=== PATIENT | female | born 1935 | race Caucasian/White ===

== ENCOUNTER 2018-05-24 14:40 | Outpatient (CLI) | payer MEDICARE, BC ==
[2018-05-24 16:59] LABS: #Lymphocytes 1.7 thou/uL (1.20-3.40); #Monocytes 0.8 thou/uL (0.11-0.59); #Neutrophils 6.7 thou/uL (1.40-6.50); %Eosinophils 0.3 % (0.0-10.0); %Lymphocytes 18.6 % (21.0-51.0); %Neutrophils 72.1 % (42.0-75.0); Hemoglobin 10.4 g/dL (12.0-16.0); Mean Corpuscular HGB CONC 32.3 g/dL (32.0-36.0); Mean Corpuscular Hemoglobin 25.9 pg (27.0-31.0); Mean Corpuscular Volume 80.1 fL (78.0-98.0); Mean Platelet Volume 7.3 fL (7.4-10.4); Platelet Count 227 thou/uL (130-400); RBC Distribution Width 13.3 % (11.5-14.5); Red Blood Cell (RBC) Count 4.01 mill/uL (4.20-5.40); White Blood Cell (WBC) Count 9.3 thou/uL (4.8-10.8)
[2018-05-24 17:23] LABS: ALT (SGPT) 8 U/L (8-55); AST (SGOT) 15 U/L (5-34); Albumin 3.8 g/dL (3.4-4.8); Alkaline Phosphatase 81 U/L (40-150); Anion Gap 8 mmol/L (10-20); BUN (Urea Nitrogen) 12 mg/dL (9.8-20.1); Bilirubin, Total 0.2 mg/dL (0.2-1.2); Calc. Creatinine Clearance 0 mL/min (70-130); Calcium 8.8 mg/dL (7.8-10.44); Carbon Dioxide 30 mmol/L (23-31); Chloride 104 mmol/L (98-107); Estimated GFR-MDRD 64; Globulin 2.7 g/dL (2.4-3.5); Glucose 105 mg/dL (83-110); Potassium 3.1 mmol/L (3.5-5.1); Protein, Total 6.5 g/dL (6.0-8.3); Sodium 139 mmol/L (136-145)
== END 2018-05-24 14:41 | disposition home or self-care (01) ==
LOC: LABBT 14:40
PROVIDERS: ATTEND Specialist
DX: Z01.812 Encounter for preprocedural laboratory examination (principal); K51.411 Inflammatory polyps of colon with rectal bleeding
CPT/HCPCS: 80053; 85025

== ENCOUNTER 2018-05-26 05:40 | Day surgery (SDC) | payer MEDICARE, BC ==
[2018-05-24 15:40] VITALS: BMI 18.5
[2018-05-26] MEDS ORDERED: MEROPENEM 1 GM/50 ML 1 GM in Premix Bag 1 BAG IVPB SCH (06:30)
[2018-05-26] MEDS ORDERED: Meropenem 1 GM in Sodium Chloride 0.9% 100 ML IVPB SCH (06:30)
[2018-05-26] MEDS ORDERED: Meropenem 2 GM in Sodium Chloride 0.9% 100 ML IVPB SCH (06:45)
[2018-05-26] MEDS ORDERED: Fentanyl 100 MCG/2 ML VIAL ONE ×2 (07:01→10:52)
--- NOTE | 2018-05-26 07:15 | HP ---
HISTORY OF PRESENT ILLNESS: An 82-year-old female referred by Dr. Vanegas for rectal bleeding. The pa norma has never had a colonoscopy. Family history is negative for colon cancer. Patient is here wit h her . She denies having rectal pain. She had laboratories on 12/18/2017 noting normal comp rehensive metabolic profile and hemoglobin 11. PAST SURGICAL HISTORY: Noncontributory. PAST MEDICAL HISTORY: Noncontributory. ALLERGIES: None. TOBACCO: None. ALCOHOL: None. MEDICATIONS: Eyedrops, Tylenol p.r.n. REVIEW OF SYSTEMS: Ten point noncontributory. PHYSICAL EXAMINATION: VITAL SIGNS: 97 pounds, 5 foot 2, 128/64, 67, 98.8 degrees. HEENT: Unremarkable. LUNGS: Clear to auscultation. CARDIAC: Regular rate and rhythm without murmur or gallop. ABDOMEN: Soft, nontender, no masses. EXTREMITIES: Unremarkable. GENITOURINARY: Perianal area reveals mild hemorrhoids. Rectal exam does not reveal any palpable mas ses. Anoscopy reveals anteriorly on the vaginal side, a soft apparent low rectal polyp. This is not typical appearance of a hemorrhoid. ASSESSMENT AND PLAN: Rectal polyp. This is sessile and measures about 3 cm in diameter. Would gayla mmend colonoscopy with transanal excision of low rectal polyp as an outpatient. We will plan a bowel prep today before clear liquids, Suprep, then plan colonoscopy and transanal excision of low rectal polyps as an outpatient. Risk of infection, bleeding, and reoperation explained. She consents.
[2018-05-26] MEDS ORDERED: Ketamine 50 MG/ML VIAL ONE (07:27)
[2018-05-26] MEDS ORDERED: PROPOFOL 20 ML ONE (07:27)
[2018-05-26] MEDS ORDERED: Midazolam HCl 2 mg/2 ml Vial ONE (07:36)
[2018-05-26] MEDS ORDERED: PROPOFOL 40 ML ONE (09:21)
[2018-05-26] MEDS ORDERED: Bupivacaine HCl 0.5%/Epinephrine 1:200,000/PF 30 ml Vial ONE (09:42)
--- NOTE | 2018-05-26 13:20 | OP ---
DATE OF PROCEDURE: 05/26/2018 PREOPERATIVE DIAGNOSES: Rectal bleeding, rectal polyp. POSTOPERATIVE DIAGNOSES: Rectal bleeding, rectal polyp with large single column hemorrhoid, smaller sigmoid polyp 25-30 cm, larger polyp 20-25 cm, snare polypectomy with cautery of base, visualization of the right colon, although I could not see the cecum due to poor bowel prep. She had multiple form ed stool balls in the rectosigmoid requiring reinsertion of the scope cleaning and thick brown stool in the cecum preventing adequate visualization. Throughout the colon, there was a [id number] amount of stool that prevented complete visualization and inspection of mucosa, but no gross lesions noted. SURGEON: Dany Perez M.D. ANESTHESIA: TIVA. Local 0.25% Marcaine with epinephrine, 10 mL PROCEDURE IN DETAIL: The patient was taken to the operating room where in the left lateral decubitus position and IV sedation, colonoscope was passed per anus. I had to remove and replace the scope fr equently, digitally removing stool balls to enable visualization. I was finally able to progress the scope with some difficulty due to tortuosity towards the cecum. I could visualize the right colon, but could not see the cecum in its entirety because of brown stool. I did irrigate this, tried to ev acuate it, but it was just too thick. There were no gross obstructive tumors. There was a small félix unt of brown stool adherent and foci throughout the colon preventing complete visualization, but I wa s able to rule out gross lesions. There are a few diverticula in the sigmoid colon. In the rectosig moid approximately 25 cm to 30 cm from the anus, there was a sessile polyp. Snare polypectomy perfor med noting good hemostasis, retrieval on the trap. There was a larger polyp at 20-25 cm, snared, rem greg, retrieved . I then inspected the polypectomy site and cauterized that with the probe caut priscila. Good hemostasis noted. Scope withdrawn noting normal rectum otherwise. The patient was then p laced in the dorsal lithotomy position. She was placed in stirrups. Perianal buttocks area prepared with Betadine and Hill-Paredes retractor inserted into the right of the anus was a large hemorrhoid complex. This had a focus of mucosa. It appeared slightly abnormal, although not malignant. This is the area that seen with anoscopy in the office. This is a questionable polyp, but more likely hem orrhoid tissue. A single column hemorrhoidectomy performed by placing apical suture of 3-0 chromic a nd using the LigaSure hemorrhoid device, excised a single column hemorrhoid complex encompassing rese ction of the questionable mucosal abnormality. Hemostasis gained with continuous suture of 3-0 chrom ic approximating the mucosa and the skin perianal. Local anesthetic infiltrated in skin and subcutan eous tissue perianal. The patient tolerated the procedure well. Xeroform gauze applied.
== END 2018-05-26 12:48 | disposition home or self-care (01) ==
LOC: SDC 05:40
PROVIDERS: ATTEND Specialist
PROC: 0DBN8ZX Excision of Sigmoid Colon, Via Natural or Artificial Opening Endoscopic, Diagnostic (ICD-10-PCS; principal; 2018-05-26)
PROC: 06BY0ZC Excision of Hemorrhoidal Plexus, Open Approach (ICD-10-PCS; 2018-05-26)
DX: K57.31 Diverticulosis of large intestine without perforation or abscess with bleeding (principal); D12.7 Benign neoplasm of rectosigmoid junction; K64.8 Other hemorrhoids; K62.1 Rectal polyp; Z79.899 Other long term (current) drug therapy
CPT/HCPCS: 88305; 96374; J0670; J2185; J2250; J2704; J3010; J7050

== ENCOUNTER 2018-07-13 08:07 | Emergency (ER) | payer MEDICARE, BC ==
[2018-07-13 08:28] LABS: Bilirubin Negative (Negative); Blood, Urine Negative (Negative); Clarity CLEAR (Clear); Glucose, Urine (Dipstick) Negative (Negative); Leukocyte Trace (Negative); Nitrite Negative (Negative); Protein, Urine (Dipstick) Negative (Neg-Trace); Specific Gravity, Urine 1.005 (1.002-1.036); Urobilinogen 0.2 mg/dL (0.2-1.0); pH, Urine 6.5 (5.0-9.0)
[2018-07-13 08:30] LABS: Bacteria/HPF None Seen HPF (None Seen); Hyaline Casts/LPF 0-3 HYALINE CAST LPF (0-3 Hyaline); Pathc Cast-AUWi Flag 0.14 (0-2.49); RBC/HPF 0-3 HPF (0-3); Squamous Epithelial None Seen HPF (0-3); WBC/HPF 0-3 HPF (0-3)
--- NOTE | 2018-07-13 09:48 | CT ---
CT BRAIN WITHOUT CONTRAST: Date: 07/13/18 HISTORY: Altered mental status. FINDINGS: Comparison made with exam of 06/11/12. No evidence of infarct, hemorrhage, midline shift, or abnormal extra-axial fluid collections are seen . Changes of cortical atrophy and chronic small vessel ischemic disease are present. The ventricular size is appropriate and the basilar cisterns are patent. The bony calvarium is intact. The visualized paranasal sinuses and mastoid air cells are well aerated. IMPRESSION: No CT evidence of acute intracranial process. POS: [facility]
[2018-07-13 09:51] LABS: #Basophils 0.1 thou/uL (0.0-0.2); #Lymphocytes 1.8 thou/uL (1.20-3.40); #Monocytes 0.5 thou/uL (0.11-0.59); #Neutrophils 2.3 thou/uL (1.40-6.50); %Basophils 2.8 % (0.0-1.0); %Eosinophils 0.8 % (0.0-10.0); %Lymphocytes 38.3 % (21.0-51.0); %Monocytes 9.5 % (0.0-10.0); %Neutrophils 48.6 % (42.0-75.0); Hemoglobin 11.1 g/dL (12.0-16.0); Mean Corpuscular HGB CONC 32.4 g/dL (32.0-36.0); Mean Corpuscular Hemoglobin 24.9 pg (27.0-31.0); Mean Corpuscular Volume 76.7 fL (78.0-98.0); Mean Platelet Volume 7.7 fL (7.4-10.4); Platelet Count 239 thou/uL (130-400); RBC Distribution Width 13.4 % (11.5-14.5); Red Blood Cell (RBC) Count 4.47 mill/uL (4.20-5.40); White Blood Cell (WBC) Count 4.8 thou/uL (4.8-10.8)
--- NOTE | 2018-07-13 09:56 | RAD ---
PORTABLE CHEST 1 VIEW: Date: 07/13/18 Time: 0941 hours HISTORY: Altered mental status. FINDINGS: Comparison made with exam of 04/29/12. The heart size is borderline. The lungs are well expanded without focal areas of consolidation, pneum othoraces, or pleural effusions. IMPRESSION: No acute process. POS: [facility]
[2018-07-13 10:08] LABS: ALT (SGPT) 7 U/L (8-55); AST (SGOT) 19 U/L (5-34); Alkaline Phosphatase 84 U/L (40-150); Anion Gap 14 mmol/L (10-20); BUN (Urea Nitrogen) 13 mg/dL (9.8-20.1); Bilirubin, Total 0.4 mg/dL (0.2-1.2); Calc. Creatinine Clearance 0 mL/min (70-130); Calcium 9.4 mg/dL (7.8-10.44); Carbon Dioxide 24 mmol/L (23-31); Chloride 104 mmol/L (98-107); Estimated GFR-MDRD 62; Glucose 89 mg/dL (83-110); Potassium 3.5 mmol/L (3.5-5.1); Sodium 138 mmol/L (136-145)
== END 2018-07-13 15:20 | disposition home or self-care (01) ==
LOC: ERS 08:07
DX: F03.90 Unspecified dementia, unspecified severity, without behavioral disturbance, psychotic disturbance, mood disturbance, and anxiety (principal); Z79.899 Other long term (current) drug therapy
CPT/HCPCS: 36415; 70450; 71045; 80053; 81003; 81015; 84443; 84484; 85025

== ENCOUNTER 2018-07-18 18:01 | Inpatient (IN) | payer MEDICARE, BC ==
[2018-07-18] MEDS ORDERED: Ziprasidone 20 MG CAP ONE (19:04)
[2018-07-18 20:27] LABS: Bilirubin Negative (Negative); Blood, Urine Negative (Negative); Clarity CLEAR (Clear); Glucose, Urine (Dipstick) Negative (Negative); Leukocyte Moderate (Negative); Nitrite Negative (Negative); Protein, Urine (Dipstick) 30 mg/dL (Neg-Trace); Specific Gravity, Urine 1.029 (1.002-1.036)
[2018-07-18 20:28] LABS: Bacteria/HPF None Seen HPF (None Seen); Pathc Cast-AUWi Flag 1.74 (0-2.49); RBC/HPF 0-3 HPF (0-3)
[2018-07-18 20:51] LABS: Hyaline Casts/LPF 0-3 HYALINE CAST LPF (0-3 Hyaline)
[2018-07-18] MEDS ORDERED: cefTRIAXone\\ROCEPHIN 1 GM VIAL ONE (21:29)
[2018-07-18] MEDS ORDERED: Sodium Chloride 0.9% 100 ML ONE (21:29)
[2018-07-18 21:41] LABS: #Eosinphils 0.1 thou/uL (0.0-0.7); #Lymphocytes 2.6 thou/uL (1.20-3.40); #Monocytes 0.8 thou/uL (0.11-0.59); #Neutrophils 3.1 thou/uL (1.40-6.50); %Basophils 0.7 % (0.0-1.0); %Eosinophils 1.4 % (0.0-10.0); %Lymphocytes 39.5 % (21.0-51.0); %Monocytes 11.4 % (0.0-10.0); %Neutrophils 46.9 % (42.0-75.0); Hemoglobin 11.1 g/dL (12.0-16.0); Mean Corpuscular HGB CONC 32.7 g/dL (32.0-36.0); Mean Corpuscular Hemoglobin 25.1 pg (27.0-31.0); Mean Corpuscular Volume 76.7 fL (78.0-98.0); Platelet Count 235 thou/uL (130-400); RBC Distribution Width 14.1 % (11.5-14.5); White Blood Cell (WBC) Count 6.6 thou/uL (4.8-10.8)
[2018-07-18 21:49] LABS: ALT (SGPT) 15 U/L (8-55); AST (SGOT) 18 U/L (5-34); Albumin 3.7 g/dL (3.4-4.8); Alkaline Phosphatase 96 U/L (40-150); Anion Gap 12 mmol/L (10-20); BUN (Urea Nitrogen) 12 mg/dL (9.8-20.1); Bilirubin, Total 0.2 mg/dL (0.2-1.2); Calc. Creatinine Clearance 0 mL/min (70-130); Carbon Dioxide 26 mmol/L (23-31); Chloride 102 mmol/L (98-107); Estimated GFR-MDRD 69; Globulin 2.9 g/dL (2.4-3.5); Glucose 99 mg/dL (83-110); Potassium 3.6 mmol/L (3.5-5.1); Protein, Total 6.6 g/dL (6.0-8.3); Sodium 136 mmol/L (136-145)
[2018-07-18 23:00] VITALS: BMI 17.0
[2018-07-19] MEDS ORDERED: Acetaminophen 500 MG TAB PO PRN (00:58)
[2018-07-19] MEDS ORDERED: Ipratropium Bromide 0.06% Nasal Inhaler 15ml EA NARE PRN (00:58)
[2018-07-19] MEDS ORDERED: Acetaminophen 325 MG TAB PO PRN (01:07)
[2018-07-19] MEDS ORDERED: Haloperidol Lactate 5 MG/ML VIAL IM PRN (01:12)
[2018-07-19] MEDS ORDERED: Sodium Chloride 0.9% 1,000 ML IV SCH (01:15)
[2018-07-19] MEDS ORDERED: Enoxaparin Sodium 40 MG/0.4 ML SYRINGE SC SCH (01:15)
[2018-07-19] MEDS ORDERED: Loratadine 10 MG TAB PO PRN (08:17)
[2018-07-19] MEDS ORDERED: Bisacodyl 10 MG SUPP PR PRN (08:17)
[2018-07-19] MEDS ORDERED: HYDROcodone/Acetaminophen 5/325 mg Tablet PO PRN (08:17)
[2018-07-19] MEDS ORDERED: hydrALAZINE 20 MG/ML VIAL SLOW IVP PRN (08:17)
[2018-07-19] MEDS ORDERED: Artificial Tears 18 DROP/0.9 ML EA EYE PRN (08:17)
[2018-07-19] MEDS ORDERED: Senokot S 8.6-50 MG TAB PO PRN (08:17)
[2018-07-19] MEDS ORDERED: Sodium Chloride 0.65% Nasal 44 ML BOT EA NARE PRN (08:17)
[2018-07-19] MEDS ORDERED: Diabetic Tussin 200 MG/10 ML UDCUP PO PRN (08:17)
[2018-07-19] MEDS ORDERED: Eucerin (Mineral Oil/Petrolatum,White) 30 gm Jar TOP PRN (08:17)
[2018-07-19] MEDS ORDERED: Loperamide HCl 2 MG CAP PO PRN (08:17)
[2018-07-19] MEDS ORDERED: Ondansetron PF 4 MG/2 ML Vial IVP PRN (08:17)
[2018-07-19] MEDS ORDERED: Ondansetron ODT 4 MG TAB PO PRN (08:17)
[2018-07-19] MEDS ORDERED: Cepastat Lozenges 1 LOZ PO PRN (08:17)
[2018-07-19] MEDS ORDERED: Non-Formulary Item 1 EACH (Bimatoprost [Lumigan] 1 DROP) EA EYE SCH (09:00)
[2018-07-19] MEDS ORDERED: Famotidine/PF 20 mg/2ml Vial SLOW IVP SCH (09:00)
[2018-07-19] MEDS ORDERED: Non-Formulary Item 1 EACH (Omeprazole [Omeprazole] 1 CAP) PO SCH (09:00)
[2018-07-19] MEDS: DorzolamidE/Timolol 2%/0.5% Ophth Soln 10 ml Bottle EA EYE SCH ×2 (09:02→20:13)
--- NOTE | 2018-07-19 10:16 | HP ---
CHIEF COMPLAINT: Alterations of awareness. HISTORY OF PRESENT ILLNESS: This is an 82-year-old female with past medical history of hypertension, dementia, and cardiomyopathy, presenting with alteration of awareness. Per family, the patient has been having worsening dementia with sundowning. The patient sometimes is okay, but every now and then, the patient becomes very anxious and agitated. The patient decides to leave the house and sometimes, the patient wants to drive off and even though, the patient has been in the hospital, the patient's medications have been adjusted. It seems like the patient is having worsening agitation and fighting with the and causes so many problems at home. Family states that they cannot manage the patient at home due to her safety at this time because the patient's mentation has worsened completely. It is unknown if the patient has underlying encephalopathy due to inadequate medication or if the patient is having some infection, therefore, the family brought the patient in to be further evaluated. REVIEW OF SYSTEMS: Unable to be obtained since the patient has alteration of awareness. PAST MEDICAL HISTORY: Hypertension, dementia, and cardiomyopathy. FAMILY HISTORY: Reviewed and noncontributory. PAST SURGICAL HISTORY: Hysterectomy. PSYCHIATRIC HISTORY: No previous psych history noted. SOCIAL HISTORY: The patient does not drink. The patient does not do illicit drugs. The patient does not smoke. The patient lives at home with family and . ALLERGIES: NO KNOWN DRUG ALLERGIES. CURRENT MEDICATIONS: The patient takes; 1. Lisinopril 10 mg. 2. Lasix 10 mg. 3. Citalopram. 4. Verapamil. 5. Omeprazole. PHYSICAL EXAMINATION: VITAL SIGNS: The patient's blood pressure is 145/92, pulse of 76, respiratory rate of 15, oxygen saturation of 98% on room air. GENERAL: The patient is alert and oriented x3, not in acute distress. HEENT: Normocephalic, atraumatic. Pupils are equally round and reactive to light. Extraocular movements are intact. No scleral icterus. Mucous membranes are moist. NECK: Trachea is midline. Full range of motion. No JVD. Supple. LUNGS: Clear to auscultation bilaterally. No wheezing, no rales, no rhonchi is appreciated. CARDIAC: Positive S1 and S2. Regular rate and rhythm. No murmurs, no gallops, no rubs appreciated. ABDOMEN: Soft, nontender, and nondistended. Positive bowel sounds in all quadrants. EXTREMITIES: The patient has 5/5 upper extremity strength with good pulses bilaterally and lower extremities, the patient has 5/5 lower extremity strength with good pulses bilaterally. NEUROLOGIC: Cranial nerves 2 through 12 grossly intact. No neurologic deficits noted. SKIN: Warm, dry, and intact. LABORATORY DATA: WBC 6.6, hemoglobin is 11.1, MCV 76.7, and RDW 14.1. Chemistries within normal limits. Urinalysis; the patient has moderate leukocyte esterase, however, the patient's squamous epithelial cell is 7 to 10. ASSESSMENT AND PLAN: 1. This is an 82-year-old female, presenting with worsening dementia. At this time, we are going to continue the patient on her home medication. We are going to order Haldol 2 mg every 4 hours p.r.n. for agitation and we are going to speak to family regarding the patient's safety and possible renal case manager consultation to further evaluate the patient for placement due to the patient's worsening dementia. 2. Alteration of awareness, likely due to underlying delirium on top of the patient's dementia due to possible urinary tract infection. At this point, we have started the patient on Rocephin. The patient's urinalysis had a lot of squamous epithelial cells, it might be likely contamination, however, due to the patient's mental status, we will empirically treat the patient with Rocephin and to follow up on morning labs and we will follow up on the patient's progress. 3. History of hypertension, at this point, normotensive. We will continue the patient on her home medications. 4. History of cardiomyopathy. At this point, the patient is not in any acute heart failure. We will continue the patient on her home medications. 5. Deep venous thrombosis and gastrointestinal prophylaxis. Job ID: [id number]
[2018-07-19] MEDS: Furosemide 20 MG TAB PO SCH (10:21)
[2018-07-19] MEDS: Lisinopril 20 MG TAB PO SCH (10:21)
[2018-07-19] MEDS: Citalopram 10 MG TAB PO SCH (10:21)
[2018-07-19] MEDS: Saccharomyces boulardii 250 MG CAP PO SCH (10:25)
[2018-07-19] MEDS: Multivitamin W/ Minerals 1 TAB PO SCH (10:25)
--- NOTE | 2018-07-19 11:12 | PDOC.PN ---
- Subjective Encounter Start Date: 07/19/18 Encounter Start Time: 08:00 -: old records requested/rev Patient seen and examined. Pt is agitated, confused, given haldol and now sleepy - Objective Resuscitation Status - Order Detail: 07/19/18 00:59 Resuscitation Status Routine Resuscitation Status: DNAR: NO Resuscitation Discussed with: kade daughter. she will bring her advance directive MAR Reviewed: Yes Vital Signs & Weight: Vital Signs (12 hours) Temp Pulse Resp BP BP Pulse Ox 07/19/18 10:21 151/78 H 07/19/18 10:05 97.5 F L 79 20 151/78 H 95 07/19/18 08:00 95 07/19/18 01:07 98.2 F 76 18 134/76 96 Weight Weight 99 lb 6 oz Result Diagrams: 07/18/18 21:24 07/18/18 21:24 Phys Exam - Physical Examination Constitutional: NAD HEENT: PERRLA, sclera anicteric Neck: no JVD, supple Respiratory: no wheezing, no rales, no rhonchi Cardiovascular: RRR, no significant murmur, no rub Gastrointestinal: soft, non-tender, no distention, positive bowel sounds Musculoskeletal: no edema, pulses present Neurological: moves all 4 limbs Lymphatic: no nodes Psychiatric: normal affect Skin: no rash, normal turgor Dx/Plan (1) Encephalopathy acute Code(s): G93.40 - ENCEPHALOPATHY, UNSPECIFIED Status: Acute (2) UTI (urinary tract infection) Status: Acute (3) Anemia, normocytic normochromic Code(s): D64.9 - ANEMIA, UNSPECIFIED Status: Chronic (4) Dementia Code(s): F03.90 - UNSPECIFIED DEMENTIA WITHOUT BEHAVIORAL DISTURBANCE Status: Chronic (5) GERD (gastroesophageal reflux disease) Code(s): K21.9 - GASTRO-ESOPHAGEAL REFLUX DISEASE WITHOUT ESOPHAGITIS Status: Chronic (6) Glaucoma Code(s): H40.9 - UNSPECIFIED GLAUCOMA Status: Chronic (7) Hypertension Code(s): I10 - ESSENTIAL (PRIMARY) HYPERTENSION Status: Chronic (8) Protein-calorie malnutrition, moderate Code(s): E44.0 - MODERATE PROTEIN-CALORIE MALNUTRITION Status: Chronic - Plan cont current plan of care, plan discussed w/ family, continue antibiotics, PT/OT * continue rocephin * start PT * case coordinator for placement * continue IVF * discussed with family * supportive care * nutritional support * medication reviewed as below * symptomatic treatment. Review of Systems - Review of Systems Other: not reliable due to dementia - Medications/Allergies Allergies/Adverse Reactions: Allergies Allergy/AdvReac Type Severity Reaction Status Date / Time No Known Allergies Allergy Verified 05/24/18 15:40 Medications: Current Medications Acetaminophen (Tylenol) 500 mg PO Q4H PRN PRN Reason: Fever > 101 Hydrocodone Bitart/Acetaminophen ([place] 5/325) 1 tab PO Q4H PRN PRN Reason: Moderate Pain (4-6) Artificial Tears (Tears Naturale) 2 drop EA EYE PRN PRN PRN Reason: Dry Eyes Bisacodyl (Dulcolax) 10 mg [place] DAILYPRN PRN PRN Reason: Constipation Citalopram Hydrobromide (Celexa) 10 mg PO DAILY [facility] Last Admin: 07/19/18 10:21 Dose: 10 mg Dorzolamide/Timolol (Cosopt 2-0.5% Ophth Soln) 1 drop EA EYE BID [facility] Famotidine (Pepcid) 20 mg PO BID [facility] Furosemide (Lasix) 20 mg PO QAM [facility] Last Admin: 07/19/18 10:21 Dose: 20 mg Guaifenesin (Robitussin Sf) 200 mg PO Q4H PRN PRN Reason: Cough Hydralazine HCl (Apresoline) 10 mg SLOW IVP Q4H PRN PRN Reason: SBP > 180 and HR < 70 Sodium Chloride (Normal Saline 0.9%) 1,000 mls @ 80 mls/hr IV .[id number] [facility] Stop: 07/19/18 13:44 Last Admin: 07/19/18 02:18 Dose: 1,000 mls Ceftriaxone Sodium 1 gm/ (Sodium Chloride) 100 mls @ 200 mls/hr IVPB Q24HR@ 2100 [facility] Ipratropium Cable (Atrovent 0.06% Nasal Inhaler) 0 ml EA NARE DAILYPRN PRN PRN Reason: Congestion Iron/Minerals/Multivitamins (Theragran M) 1 tab PO DAILY [facility] Last Admin: 07/19/18 10:25 Dose: 1 tab Latanoprost (Xalatan 0.005% Ophth Soln) 1 drop EA EYE HS [facility] Lisinopril (Zestril) 40 mg PO DAILY [facility] Last Admin: 07/19/18 10:21 Dose: 40 mg Loperamide HCl (Imodium) 2 mg PO PRN PRN PRN Reason: Diarrhea/Loose Stools Loratadine (Claritin) 10 mg PO DAILYPRN PRN PRN Reason: Sinus Symptoms Mineral Oil/White Petrolatum (Eucerin Cream) 0 gm TOP BIDPRN PRN PRN Reason: Dry Skin Miscellaneous Medication (Pharmacy To Dose) 1 each IVPB ONE PRN PRN Reason: Pharmacy to dose Stop: 07/19/18 23:59 Ondansetron HCl (Zofran Odt) 4 mg PO Q6H PRN PRN Reason: Nausea/Vomiting Ondansetron HCl (Zofran) 4 mg IVP Q6H PRN PRN Reason: Nausea/Vomiting Pantoprazole Sodium (Protonix) 40 mg PO DAILY [facility] Last Admin: 07/19/18 10:22 Dose: 40 mg Quetiapine Fumarate (Seroquel) 25 mg PO BID [facility] Saccharomyces Boulardii (Florastor) 250 mg PO DAILY [facility] Last Admin: 07/19/18 10:25 Dose: 250 mg Senna/Docusate Sodium (Senokot S) 2 tab PO BID PRN PRN Reason: Constipation Sodium Chloride (Flush - Normal Saline) 10 ml IVF Q12HR [facility] Sodium Chloride (Flush - Normal Saline) 10 ml IVF PRN PRN PRN Reason: Saline Flush Sodium Chloride ([place] Nasal [place] 0.65%) 0 ml EA NARE QIDPRN PRN PRN Reason: Nasal Congestion Throat Lozenges (Cepastat Lozenges) 1 chin PO Q2H PRN PRN Reason: Sore Throat Verapamil HCl (Calan Sr) 240 mg PO DAILY [facility]
--- NOTE | 2018-07-19 14:14 | PQF ---
CLINICAL DOCUMENTATION IMPROVEMENT CLARIFICATION FORM: ICD-10 Updated PLEASE DO AN ADDENDUM TO THE PROGRESS NOTE WITH ANY DOCUMENTATION UPDATES OR ADDITIONS AND CARRY THROUGH TO DC SUMMARY. THANK YOU. DATE: 07/19/18 ATTN: DR. BARNETT Please exercise your independent, professional judgment in responding to the clarification form. Clinical indicators are provided on the bottom of this form for your review Please check appropriate box(s): [ x ] Encephalopathy: Type: [ x ] Acute [ ] Subacute [ ] Chronic Etiology: [ ] Hypertensive [ ] Metabolic [ ] Toxic [ ] Hypoxic [ x ] Septic [ ] Unspecified [ ] in the setting of underlying dementia [ ] Other (please specify) [ ] Other diagnosis [ ] Unable to determine In addition, please specify: Present on Admission (POA): [ x] Yes [ ] No [ ] Unable to determine For continuity of documentation, please document condition throughout progress notes and discharge summary. Thank You. CLINICAL INDICATORS - SIGNS / SYMPTOMS / LABS H&P: "UNDERLYING ENCEPHALOPATHY" RISKS: DEMENTIA ADVANCED AGE UTI TREATMENT: IV ROCEPHIN (ER-PRESENT) IV FLUIDS (ER-07/19) PO GEODON (ER) SEROQUEL (STARTED 07/18) IM HALDOL (07/19) URINE CULTURES (This form is maintained as a part of the permanent medical record) 2014 [employer] All Rights Reserved MADYSON [email or web address] Office: [phone] [facility]
[2018-07-19] MEDS: Famotidine 20 MG TAB PO SCH ×2 (14:42→20:13)
[2018-07-19 15:13] LABS: #Basophils 0.1 thou/uL (0.0-0.2); #Eosinphils 0.1 thou/uL (0.0-0.7); #Lymphocytes 1.6 thou/uL (1.20-3.40); #Monocytes 0.6 thou/uL (0.11-0.59); #Neutrophils 3.9 thou/uL (1.40-6.50); %Basophils 1.1 % (0.0-1.0); %Eosinophils 1.1 % (0.0-10.0); %Lymphocytes 25.3 % (21.0-51.0); %Neutrophils 63.5 % (42.0-75.0); Hemoglobin 10.2 g/dL (12.0-16.0); Mean Corpuscular HGB CONC 32.1 g/dL (32.0-36.0); Mean Corpuscular Hemoglobin 25.1 pg (27.0-31.0); Mean Corpuscular Volume 78.3 fL (78.0-98.0); Platelet Count 197 thou/uL (130-400); RBC Distribution Width 14.2 % (11.5-14.5); Red Blood Cell (RBC) Count 4.06 mill/uL (4.20-5.40); White Blood Cell (WBC) Count 6.2 thou/uL (4.8-10.8)
[2018-07-19 15:36] LABS: Anion Gap 12 mmol/L (10-20); BUN (Urea Nitrogen) 9 mg/dL (9.8-20.1); Calc. Creatinine Clearance 40 mL/min (70-130); Calcium 8.5 mg/dL (7.8-10.44); Carbon Dioxide 24 mmol/L (23-31); Chloride 106 mmol/L (98-107); Estimated GFR-MDRD 74; Glucose 111 mg/dL (83-110); Potassium 3.6 mmol/L (3.5-5.1); Sodium 138 mmol/L (136-145)
[2018-07-19] MEDS: cefTRIAXone\\ROCEPHIN 1 GM in Sodium Chloride 0.9% 100 ML IVPB SCH (20:13)
[2018-07-19] MEDS: Latanoprost 0.005% Ophth Soln 2.5 ml Bottle EA EYE SCH (20:14)
[2018-07-20] MEDS: Furosemide 20 MG TAB PO SCH (09:35)
[2018-07-20] MEDS: Famotidine 20 MG TAB PO SCH ×2 (09:35→21:27)
[2018-07-20] MEDS: Lisinopril 20 MG TAB PO SCH (09:35)
[2018-07-20] MEDS: Saccharomyces boulardii 250 MG CAP PO SCH (09:36)
[2018-07-20] MEDS: Citalopram 10 MG TAB PO SCH (09:36)
[2018-07-20] MEDS: Multivitamin W/ Minerals 1 TAB PO SCH (09:36)
[2018-07-20] MEDS: DorzolamidE/Timolol 2%/0.5% Ophth Soln 10 ml Bottle EA EYE SCH ×2 (09:36→21:27)
--- NOTE | 2018-07-20 09:41 | PDOC.PN ---
- Subjective Encounter Start Date: 07/20/18 Encounter Start Time: 08:10 -: old records requested/rev Patient seen and examined. No new complaints. No overnight events pt is more alert today - Objective Resuscitation Status - Order Detail: 07/19/18 00:59 Resuscitation Status Routine Resuscitation Status: DNAR: NO Resuscitation Discussed with: kade daughter. she will bring her advance directive MAR Reviewed: Yes Vital Signs & Weight: Vital Signs (12 hours) Temp Pulse Resp BP Pulse Ox 07/20/18 08:00 98.3 F 77 18 147/85 H 96 Weight Admit Weight 99 lb 6 oz Weight 99 lb 6 oz Result Diagrams: 07/19/18 15:05 07/19/18 15:05 Phys Exam - Physical Examination Constitutional: NAD HEENT: PERRLA, moist MMs, sclera anicteric Neck: no JVD, supple Respiratory: no wheezing, no rales, no rhonchi Cardiovascular: RRR, no significant murmur, no rub Gastrointestinal: soft, non-tender, no distention, positive bowel sounds Musculoskeletal: no edema, pulses present Neurological: non-focal, normal sensation Lymphatic: no nodes Psychiatric: normal affect Skin: no rash, normal turgor Dx/Plan (1) Encephalopathy acute Code(s): G93.40 - ENCEPHALOPATHY, UNSPECIFIED Status: Acute (2) UTI (urinary tract infection) Status: Acute (3) Anemia, normocytic normochromic Code(s): D64.9 - ANEMIA, UNSPECIFIED Status: Chronic (4) Dementia Code(s): F03.90 - UNSPECIFIED DEMENTIA WITHOUT BEHAVIORAL DISTURBANCE Status: Chronic (5) GERD (gastroesophageal reflux disease) Code(s): K21.9 - GASTRO-ESOPHAGEAL REFLUX DISEASE WITHOUT ESOPHAGITIS Status: Chronic (6) Glaucoma Code(s): H40.9 - UNSPECIFIED GLAUCOMA Status: Chronic (7) Hypertension Code(s): I10 - ESSENTIAL (PRIMARY) HYPERTENSION Status: Chronic (8) Protein-calorie malnutrition, moderate Code(s): E44.0 - MODERATE PROTEIN-CALORIE MALNUTRITION Status: Chronic - Plan cont current plan of care, plan discussed w/ family, continue antibiotics, PT/OT , social work lecturer * medication reviewed as below * symptomatic treatment * continue rocephin * rn case mgr for discharge planning * follow culture * discussed with family * stable and improving. Review of Systems - Review of Systems ENT: negative: Ear Pain, Ear Discharge, Nose Pain, Nose Discharge, Nose Congestion, Mouth Pain, Mouth Swelling, Throat Pain, Throat Swelling, Other Respiratory: negative: Cough, Dry, Shortness of Breath, Hemoptysis, SOB with Excertion, Pleuritic Pain, Sputum, Wheezing Cardiovascular: negative: chest pain, palpitations, orthopnea, paroxysmal nocturnal dyspnea, edema, light headedness, other Gastrointestinal: negative: Nausea, Vomiting, Abdominal Pain, Diarrhea, Constipation, Melena, Hematochezia, Other Genitourinary: negative: Dysuria, Frequency, Incontinence, Hematuria, Retention , Other Musculoskeletal: negative: Neck Pain, Shoulder Pain, Arm Pain, Back Pain, Hand Pain, Leg Pain, Foot Pain, Other - Medications/Allergies Allergies/Adverse Reactions: Allergies Allergy/AdvReac Type Severity Reaction Status Date / Time No Known Allergies Allergy Verified 05/24/18 15:40 Medications: Current Medications Acetaminophen (Tylenol) 500 mg PO Q4H PRN PRN Reason: Fever > 101 Hydrocodone Bitart/Acetaminophen ([place] 5/325) 1 tab PO Q4H PRN PRN Reason: Moderate Pain (4-6) Artificial Tears (Tears Naturale) 2 drop EA EYE PRN PRN PRN Reason: Dry Eyes Bisacodyl (Dulcolax) 10 mg [place] DAILYPRN PRN PRN Reason: Constipation Citalopram Hydrobromide (Celexa) 10 mg PO DAILY [facility] Last Admin: 07/20/18 09:36 Dose: 10 mg Dorzolamide/Timolol (Cosopt 2-0.5% Ophth Soln) 1 drop EA EYE BID [facility] Last Admin: 07/20/18 09:36 Dose: 1 drop Famotidine (Pepcid) 20 mg PO BID [facility] Last Admin: 07/20/18 09:35 Dose: 20 mg Furosemide (Lasix) 20 mg PO QAM [facility] Last Admin: 07/20/18 09:35 Dose: 20 mg Guaifenesin (Robitussin Sf) 200 mg PO Q4H PRN PRN Reason: Cough Hydralazine HCl (Apresoline) 10 mg SLOW IVP Q4H PRN PRN Reason: SBP > 180 and HR < 70 Ceftriaxone Sodium 1 gm/ (Sodium Chloride) 100 mls @ 200 mls/hr IVPB Q24HR@ 2100 [facility] Last Admin: 07/19/18 20:13 Dose: 100 mls Ipratropium [place] (Atrovent 0.06% Nasal Inhaler) 0 ml EA NARE DAILYPRN PRN PRN Reason: Congestion Iron/Minerals/Multivitamins (Theragran M) 1 tab PO DAILY [facility] Last Admin: 07/20/18 09:36 Dose: 1 tab Latanoprost (Xalatan 0.005% Ophth Soln) 1 drop EA EYE HS [facility] Last Admin: 07/19/18 20:14 Dose: Not Given Lisinopril (Zestril) 40 mg PO DAILY [facility] Last Admin: 07/20/18 09:35 Dose: 40 mg Loperamide HCl (Imodium) 2 mg PO PRN PRN PRN Reason: Diarrhea/Loose Stools Loratadine (Claritin) 10 mg PO DAILYPRN PRN PRN Reason: Sinus Symptoms Mineral Oil/White Petrolatum (Eucerin Cream) 0 gm TOP BIDPRN PRN PRN Reason: Dry Skin Ondansetron HCl (Zofran Odt) 4 mg PO Q6H PRN PRN Reason: Nausea/Vomiting Ondansetron HCl (Zofran) 4 mg IVP Q6H PRN PRN Reason: Nausea/Vomiting Pantoprazole Sodium (Protonix) 40 mg PO DAILY [facility] Last Admin: 07/20/18 09:35 Dose: 40 mg Quetiapine Fumarate (Seroquel) 25 mg PO BID [facility] Last Admin: 07/20/18 09:35 Dose: 25 mg Saccharomyces Boulardii (Florastor) 250 mg PO DAILY [facility] Last Admin: 07/20/18 09:36 Dose: 250 mg Senna/Docusate Sodium (Senokot S) 2 tab PO BID PRN PRN Reason: Constipation Sodium Chloride (Flush - Normal Saline) 10 ml IVF Q12HR [facility] Last Admin: 07/19/18 20:14 Dose: Not Given Sodium Chloride (Flush - Normal Saline) 10 ml IVF PRN PRN PRN Reason: Saline Flush Sodium Chloride ([place] Nasal [place] 0.65%) 0 ml EA NARE QIDPRN PRN PRN Reason: Nasal Congestion Throat Lozenges (Cepastat Lozenges) 1 chin PO Q2H PRN PRN Reason: Sore Throat Verapamil HCl (Calan Sr) 240 mg PO DAILY [facility] Last Admin: 07/19/18 15:20 Dose: 240 mg
[2018-07-20] MEDS: cefTRIAXone\\ROCEPHIN 1 GM in Sodium Chloride 0.9% 100 ML IVPB SCH (21:27)
[2018-07-20] MEDS: Latanoprost 0.005% Ophth Soln 2.5 ml Bottle EA EYE SCH (21:28)
[2018-07-21] MEDS: Citalopram 10 MG TAB PO SCH (09:36)
[2018-07-21] MEDS: Famotidine 20 MG TAB PO SCH ×3 (09:36→21:19)
[2018-07-21] MEDS: Saccharomyces boulardii 250 MG CAP PO SCH (09:36)
[2018-07-21] MEDS: Furosemide 20 MG TAB PO SCH (09:36)
[2018-07-21] MEDS: Lisinopril 20 MG TAB PO SCH (09:37)
[2018-07-21] MEDS: DorzolamidE/Timolol 2%/0.5% Ophth Soln 10 ml Bottle EA EYE SCH ×2 (09:38→19:42)
[2018-07-21] MEDS: Multivitamin W/ Minerals 1 TAB PO SCH (09:39)
--- NOTE | 2018-07-21 10:10 | PDOC.PN ---
- Subjective Encounter Start Date: 07/21/18 Encounter Start Time: 12:45 Subjective: Patient pleasantly demented. No complaints. Slept a bit better last -: night with the Seroquel. Still gets anxious easily and can be aggressive. - Objective Resuscitation Status - Order Detail: 07/19/18 00:59 Resuscitation Status Routine Resuscitation Status: DNAR: NO Resuscitation Discussed with: per daughter. she will bring her advance directive MAR Reviewed: Yes Vital Signs & Weight: Vital Signs (12 hours) BP 07/21/18 09:37 151/78 H Weight Admit Weight 99 lb 6 oz Weight 99 lb 6 oz Result Diagrams: 07/19/18 15:05 07/19/18 15:05 Phys Exam - Physical Examination Constitutional: NAD HEENT: moist MMs Respiratory: no wheezing, no rales, no rhonchi Cardiovascular: RRR, no significant murmur Gastrointestinal: soft, positive bowel sounds Neurological: non-focal, moves all 4 limbs Psychiatric: normal affect Deviation from normal: Oriented to person only Dx/Plan (1) Encephalopathy acute Code(s): G93.40 - ENCEPHALOPATHY, UNSPECIFIED Status: Acute (2) UTI (urinary tract infection) Status: Acute (3) Alzheimer's dementia with behavioral disturbance Code(s): G30.9 - ALZHEIMER'S DISEASE, UNSPECIFIED; F02.81 - DEMENTIA IN OTH DISEASES CLASSD ELSWHR W BEHAVIORAL DISTURB Status: Chronic (4) Anemia, normocytic normochromic Code(s): D64.9 - ANEMIA, UNSPECIFIED Status: Chronic (5) Dementia Code(s): F03.90 - UNSPECIFIED DEMENTIA WITHOUT BEHAVIORAL DISTURBANCE Status: Chronic (6) GERD (gastroesophageal reflux disease) Code(s): K21.9 - GASTRO-ESOPHAGEAL REFLUX DISEASE WITHOUT ESOPHAGITIS Status: Chronic (7) Glaucoma Code(s): H40.9 - UNSPECIFIED GLAUCOMA Status: Chronic (8) Hypertension Code(s): I10 - ESSENTIAL (PRIMARY) HYPERTENSION Status: Chronic (9) Protein-calorie malnutrition, moderate Code(s): E44.0 - MODERATE PROTEIN-CALORIE MALNUTRITION Status: Chronic - Plan cont current plan of care, continue antibiotics Physical status improved, UCx mixed taiwo. No fever or elevated WBC. Will -: transition to oral antibiotics. Can go to SNF as soon as able to -: arrange. * . - Discharge Day Encounter end time: 13:15
[2018-07-21] MEDS: Latanoprost 0.005% Ophth Soln 2.5 ml Bottle EA EYE SCH (19:43)
[2018-07-21] MEDS: Cefdinir 300 MG CAP PO SCH ×2 (19:49→21:19)
[2018-07-21] MEDS ORDERED: Haloperidol Lactate 5 MG/ML VIAL IM SCH (21:15)
[2018-07-21] MEDS: Ziprasidone 20 MG VIAL IM PRN (22:44)
[2018-07-21] MEDS: Sterile Water 10 ML VIAL FS PRN (22:44)
[2018-07-22] MEDS: Cefdinir 300 MG CAP PO SCH ×2 (09:17→19:26)
[2018-07-22] MEDS: Furosemide 20 MG TAB PO SCH (09:17)
[2018-07-22] MEDS: Citalopram 10 MG TAB PO SCH (09:18)
[2018-07-22] MEDS: Lisinopril 20 MG TAB PO SCH (09:18)
[2018-07-22] MEDS: DorzolamidE/Timolol 2%/0.5% Ophth Soln 10 ml Bottle EA EYE SCH ×2 (09:18→19:31)
[2018-07-22] MEDS: Saccharomyces boulardii 250 MG CAP PO SCH (09:23)
[2018-07-22] MEDS: Multivitamin W/ Minerals 1 TAB PO SCH (09:23)
[2018-07-22] MEDS: Famotidine 20 MG TAB PO SCH ×2 (09:23→19:26)
--- NOTE | 2018-07-22 09:35 | PDOC.PN ---
- Subjective Encounter Start Date: 07/22/18 Encounter Start Time: 11:50 Subjective: Patient agitated, refused medicine last night, eventually had to have -: Haldol IM. Calm this AM and took all meds. - Objective Resuscitation Status - Order Detail: 07/19/18 00:59 Resuscitation Status Routine Resuscitation Status: DNAR: NO Resuscitation Discussed with: kade daughter. she will bring her advance directive MAR Reviewed: Yes Vital Signs & Weight: Vital Signs (12 hours) Temp Pulse Resp BP BP Pulse Ox 07/22/18 09:18 153/83 H 07/22/18 07:47 98.1 F 72 16 153/83 H 99 Weight Admit Weight 99 lb 6 oz Weight 99 lb 6 oz I&O: 07/21/18 07/22/18 07/23/18 06:59 06:59 06:59 Intake Total 1120 Balance 1120 Result Diagrams: 07/19/18 15:05 07/19/18 15:05 Phys Exam - Physical Examination Constitutional: NAD HEENT: moist MMs Respiratory: no wheezing, no rales, no rhonchi Cardiovascular: RRR holosystolic murmur at RSB Gastrointestinal: soft, positive bowel sounds Neurological: non-focal, moves all 4 limbs Psychiatric: normal affect Deviation from normal: oriented to person only Dx/Plan (1) Encephalopathy acute Code(s): G93.40 - ENCEPHALOPATHY, UNSPECIFIED Status: Resolved (2) UTI (urinary tract infection) Status: Acute Comment: transitioned to oral antibiotics (3) Alzheimer's dementia with behavioral disturbance Code(s): G30.9 - ALZHEIMER'S DISEASE, UNSPECIFIED; F02.81 - DEMENTIA IN OTH DISEASES CLASSD ELSWHR W BEHAVIORAL DISTURB Status: Chronic Comment: Family requesting neurology evaluation before discharge. (4) Anemia, normocytic normochromic Code(s): D64.9 - ANEMIA, UNSPECIFIED Status: Chronic (5) Dementia Code(s): F03.90 - UNSPECIFIED DEMENTIA WITHOUT BEHAVIORAL DISTURBANCE Status: Chronic (6) GERD (gastroesophageal reflux disease) Code(s): K21.9 - GASTRO-ESOPHAGEAL REFLUX DISEASE WITHOUT ESOPHAGITIS Status: Chronic (7) Glaucoma Code(s): H40.9 - UNSPECIFIED GLAUCOMA Status: Chronic (8) Hypertension Code(s): I10 - ESSENTIAL (PRIMARY) HYPERTENSION Status: Chronic (9) Protein-calorie malnutrition, moderate Code(s): E44.0 - MODERATE PROTEIN-CALORIE MALNUTRITION Status: Chronic - Plan cont current plan of care, continue antibiotics, 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 Crowder teleneurology and she requested MRI and will do eval -: in morning. * . - Discharge Day Encounter end time: 12:15
[2018-07-22] MEDS ORDERED: Diazepam 5 MG TAB PO SCH (16:30)
[2018-07-22] MEDS: Latanoprost 0.005% Ophth Soln 2.5 ml Bottle EA EYE SCH (19:31)
--- NOTE | 2018-07-22 20:00 | MRI ---
BRAIN MRI WITHOUT IV CONTRAST: 07/22/18 HISTORY: 82-year-old female with history of altered mental status and dementia. No focal mass or midline shift. No intra or extra-axial hemorrhage. Scattered chronic white matter is chemic changes are noted. Bilateral atrophy. No acute hemorrhage. No evidence for acute infarct. IMPRESSION: Atrophy and chronic white matter ischemic change. Mild sinus mucosal disease. No evidence for acute i nfarct. No evidence for other acute process. POS: [facility]
[2018-07-23] MEDS: Cefdinir 300 MG CAP PO SCH ×2 (08:20→19:28)
[2018-07-23] MEDS: Lisinopril 20 MG TAB PO SCH (08:20)
[2018-07-23] MEDS: Famotidine 20 MG TAB PO SCH ×2 (08:20→19:27)
[2018-07-23] MEDS: Saccharomyces boulardii 250 MG CAP PO SCH (08:20)
[2018-07-23] MEDS: Citalopram 10 MG TAB PO SCH (08:21)
[2018-07-23] MEDS: DorzolamidE/Timolol 2%/0.5% Ophth Soln 10 ml Bottle EA EYE SCH ×2 (08:21→19:29)
[2018-07-23] MEDS: Furosemide 20 MG TAB PO SCH (08:21)
[2018-07-23] MEDS: Multivitamin W/ Minerals 1 TAB PO SCH (08:21)
--- NOTE | 2018-07-23 12:46 | PDOC.PN ---
- Subjective Encounter Start Date: 07/23/18 Encounter Start Time: 12:44 Patient seen and examined - Objective Resuscitation Status - Order Detail: 07/19/18 00:59 Resuscitation Status Routine Resuscitation Status: DNAR: NO Resuscitation Discussed with: kade daughter. she will bring her advance directive Vital Signs & Weight: Vital Signs (12 hours) Temp Pulse Resp BP BP Pulse Ox 07/23/18 08:20 143/83 H 97 07/23/18 07:42 98.4 F 83 16 143/83 H 97 Weight Admit Weight 99 lb 6 oz Weight 99 lb 6 oz I&O: 07/22/18 07/23/18 07/24/18 06:59 06:59 06:59 Intake Total 1120 1000 Balance 1120 1000 Result Diagrams: 07/19/18 15:05 07/19/18 15:05 Phys Exam - Physical Examination Constitutional: NAD HEENT: PERRLA, moist MMs, sclera anicteric Neck: no nodes, no JVD, supple Respiratory: no wheezing, no rales, no rhonchi Cardiovascular: RRR, no significant murmur, no rub Gastrointestinal: soft, non-tender, no distention Musculoskeletal: pulses present, edema present (trace) Dx/Plan (1) Alzheimer's dementia with behavioral disturbance Code(s): G30.9 - ALZHEIMER'S DISEASE, UNSPECIFIED; F02.81 - DEMENTIA IN OTH DISEASES CLASSD ELSWHR W BEHAVIORAL DISTURB Status: Chronic Comment: Family requesting neurology evaluation before discharge. (2) GERD (gastroesophageal reflux disease) Code(s): K21.9 - GASTRO-ESOPHAGEAL REFLUX DISEASE WITHOUT ESOPHAGITIS Status: Chronic (3) Hypertension Code(s): I10 - ESSENTIAL (PRIMARY) HYPERTENSION Status: Chronic (4) Protein-calorie malnutrition, moderate Code(s): E44.0 - MODERATE PROTEIN-CALORIE MALNUTRITION Status: Chronic (5) Encephalopathy acute Code(s): G93.40 - ENCEPHALOPATHY, UNSPECIFIED Status: Resolved - Plan * pending placement * no changes in plan of care * changes in mental status likely baseline mental disease process, MRI negative for any acute findings * [facility], [facility], however, family wish to pursue [facility], will await confirmation * DC once arrnaged.
[2018-07-23] MEDS: Sterile Water 10 ML VIAL FS PRN (15:09)
[2018-07-23] MEDS: Ziprasidone 20 MG VIAL IM PRN (15:09)
[2018-07-23] MEDS: Latanoprost 0.005% Ophth Soln 2.5 ml Bottle EA EYE SCH (19:29)
--- NOTE | 2018-07-24 00:49 | CON ---
DATE OF CONSULTATION: 07/23/2018 CHIEF COMPLAINT: Dementia evaluation. HISTORY OF PRESENT ILLNESS: The patient is an 82-year-old lady, who has been admitted to the hospital with urinary infection. The patient's family requested a dementia evaluation because they are very concerned about her overall health and well being. The patient has not seen a neurologist as outpatient so far. The patient has been forgetful at least for the last two years. History is obtained from both the daughters and her who were present in the room. The patient has deteriorated in the last six months. She has memory loss, combativeness for the last several days and she sleeps on and off. She wakes up at night a lot and she sleeps during the daytime. She has hallucination. She sees people. She has difficulty with walking and shuffles. She is slower than she used to be. She is independent and can take care of self. Couple of times she had to have help with bathing. She does not have any problems with swallowing or drooling or choking. She sometimes tries to leave home. She is still living at home. Before In[place], she took the keys to the car and disappeared. They know that she went to bed around 7:00 p.m. When police found her at about 3 a.m. They were very concerned at this time and trying to place her in a memory care center. She has constant sleep disruption as noted. PREVIOUS MEDICAL HISTORY: Hypertension, cardiomyopathy, for several years. PREVIOUS SURGICAL HISTORY: Hysterectomy at least for seven years. 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 She lives with her . FAMILY HISTORY: There is no family history of Parkinson's. Her mother had dementia. REVIEW OF SYSTEMS: Unreliable. CURRENT MEDICATIONS: As noted per chart. She is on hydrocodone, cefdinir, citalopram, dorzolamide, famotidine, and Artificial Tears. LABORATORY DATA: Laboratory workup; white count 6.2, hemoglobin 10.2, hematocrit 31.8, platelets 197. Sodium 138, potassium 3.6, chloride 106, bicarb 24, BUN 9, creatinine 0.75, glucose 111, and her MRI of the brain was completed and it shows atrophy and chronic white matter ischemic changes. Mild sinus mucosal disease. No evidence of acute infarct or any other acute process. PHYSICAL EXAMINATION: VITAL SIGNS: Blood pressure 143/83, temperature 98.4, and pulse is 83. GENERAL APPEARANCE: Thin built, well-nourished lady, who seems somewhat confused and agitated at times, but she was cooperative enough to complete an exam. CHEST: Clear vesicular breathing. CARDIOVASCULAR: S1, S2 heard. She has a systolic murmur in all areas, during auscultation carotids are clear. NEUROLOGIC: Motor examination; bulk normal. Tone increased with rigidity in the neck, cogwheeling rigidity, right side greater than the left side. Strength examination; mostly intact. She was cooperating enough to complete some of the strength exam and she seems to be able to follow commands. Strength is 5/5 in iliopsoas, hamstrings, quadriceps, ankle dorsiflexion, plantar flexion, deltoid, biceps, triceps, wrist extension and flexion bilaterally. Sensory; appears to be normal to touch. Deep tendon reflexes were 2+ throughout. Cerebellar; normal [id number], [id number]. Gait; she is shuffling and has decreased arm swing bilaterally, right worse than the left. IMPRESSION: The patient is an 82-year-old lady, who has a history of forgetfulness and also attempting to to leave her home during In[place] and was found by a Police. At this time, she is here for urinary tract infection. She is having some hallucinations. The family requested this consultation to determine what her diagnosis would be. Her MRI scan did not show any acute intracranial lesions such as a stroke or a tumor. She has generalized atrophy with white matter ischemic changes. Examination shows bilateral bradykinesia with rigidity and shuffling of gait and impaired cognition with poor orientation to time and place, but orientation to person. She is somewhat irritable during exam. Clinical features and diagnosis is most consistent with dementia, likely underlying causes would be Lewy body dementia. Differential diagnosis is also Alzheimer with exacerbation to Lewy body variant of Alzheimer's versus vascular dementia with gait disturbance. However, the latter two forms of dementia do not cause shuffling of gait and visual hallucinations as described early on in the disease. She needs full evaluation at the dementia center and a Neurology consultation as outpatient. At this time however, we can start her on higher dose of Seroquel in order to help with her hallucinations. 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 I will see her as needed. Please call if you have any further questions. Job ID: [id number]
[2018-07-24] MEDS: Cefdinir 300 MG CAP PO SCH (08:36)
[2018-07-24] MEDS: Lisinopril 20 MG TAB PO SCH (08:36)
[2018-07-24] MEDS: Citalopram 10 MG TAB PO SCH (08:37)
[2018-07-24] MEDS: Famotidine 20 MG TAB PO SCH ×2 (08:37→20:00)
[2018-07-24] MEDS: Multivitamin W/ Minerals 1 TAB PO SCH ×2 (08:38→11:26)
[2018-07-24] MEDS: Saccharomyces boulardii 250 MG CAP PO SCH ×2 (08:39→08:40)
[2018-07-24] MEDS: DorzolamidE/Timolol 2%/0.5% Ophth Soln 10 ml Bottle EA EYE SCH ×2 (08:39→21:51)
[2018-07-24] MEDS: Furosemide 20 MG TAB PO SCH (08:39)
--- NOTE | 2018-07-24 13:11 | PDOC.PN ---
- Subjective Encounter Start Date: 07/24/18 Encounter Start Time: 13:10 Patient seen and examined, no new issues or complaints, family at bedside, all questions answered. - Objective Resuscitation Status - Order Detail: 07/19/18 00:59 Resuscitation Status Routine Resuscitation Status: DNAR: NO Resuscitation Discussed with: per daughter. she will bring her advance directive Vital Signs & Weight: Vital Signs (12 hours) Temp Pulse Resp BP BP Pulse Ox 07/24/18 08:36 154/85 H 07/24/18 07:19 98.2 F 85 18 154/85 H 93 L Weight Admit Weight 99 lb 6 oz Weight 99 lb 6 oz I&O: 07/23/18 07/24/18 07/25/18 06:59 06:59 06:59 Intake Total 1000 720 240 Balance 1000 720 240 Result Diagrams: 07/19/18 15:05 07/19/18 15:05 Phys Exam - Physical Examination Constitutional: NAD HEENT: PERRLA, moist MMs, sclera anicteric Neck: no nodes, no JVD, supple Respiratory: no wheezing, no rales, no rhonchi Cardiovascular: RRR, no significant murmur, no rub Gastrointestinal: soft, non-tender, no distention Musculoskeletal: no edema, pulses present, edema present Dx/Plan (1) Alzheimer's dementia with behavioral disturbance Code(s): G30.9 - ALZHEIMER'S DISEASE, UNSPECIFIED; F02.81 - DEMENTIA IN OTH DISEASES CLASSD ELSWHR W BEHAVIORAL DISTURB Status: Chronic Comment: Family requesting neurology evaluation before discharge. (2) GERD (gastroesophageal reflux disease) Code(s): K21.9 - GASTRO-ESOPHAGEAL REFLUX DISEASE WITHOUT ESOPHAGITIS Status: Chronic (3) Hypertension Code(s): I10 - ESSENTIAL (PRIMARY) HYPERTENSION Status: Chronic (4) Protein-calorie malnutrition, moderate Code(s): E44.0 - MODERATE PROTEIN-CALORIE MALNUTRITION Status: Chronic (5) Encephalopathy acute Code(s): G93.40 - ENCEPHALOPATHY, UNSPECIFIED Status: Resolved - Plan * no changes * pending placement * DC plans once placement arranged * case and plan d/w patient's family at length, they understand and agree with this plan.
[2018-07-24] MEDS: Acetaminophen 500 MG TAB PO PRN (18:15)
[2018-07-24] MEDS: Latanoprost 0.005% Ophth Soln 2.5 ml Bottle EA EYE SCH (21:50)
[2018-07-25] MEDS: Furosemide 20 MG TAB PO SCH (08:58)
[2018-07-25] MEDS: Lisinopril 20 MG TAB PO SCH (08:58)
[2018-07-25] MEDS: Famotidine 20 MG TAB PO SCH ×2 (08:59→19:05)
[2018-07-25] MEDS: Citalopram 10 MG TAB PO SCH (08:59)
[2018-07-25] MEDS: Saccharomyces boulardii 250 MG CAP PO SCH (08:59)
[2018-07-25] MEDS: Multivitamin W/ Minerals 1 TAB PO SCH (09:00)
[2018-07-25] MEDS: DorzolamidE/Timolol 2%/0.5% Ophth Soln 10 ml Bottle EA EYE SCH ×2 (09:04→20:04)
[2018-07-25] MEDS: Acetaminophen 500 MG TAB PO PRN (09:11)
--- NOTE | 2018-07-25 11:14 | PDOC.PN ---
- Subjective Encounter Start Date: 07/25/18 Encounter Start Time: 11:13 Patient seen and examined - Objective Resuscitation Status - Order Detail: 07/19/18 00:59 Resuscitation Status Routine Resuscitation Status: DNAR: NO Resuscitation Discussed with: kade daughter. she will bring her advance directive Vital Signs & Weight: Vital Signs (12 hours) BP 07/25/18 08:58 120/84 Weight Admit Weight 99 lb 6 oz Weight 99 lb 6 oz I&O: 07/24/18 07/25/18 07/26/18 06:59 06:59 06:59 Intake Total 720 980 Balance 720 980 Result Diagrams: 07/19/18 15:05 07/19/18 15:05 Phys Exam - Physical Examination Constitutional: NAD HEENT: PERRLA, moist MMs, sclera anicteric Neck: no nodes, no JVD, supple Respiratory: no wheezing, no rales, no rhonchi Cardiovascular: RRR, no significant murmur, no rub Gastrointestinal: soft, non-tender, no distention, positive bowel sounds Musculoskeletal: no edema, pulses present Dx/Plan (1) Alzheimer's dementia with behavioral disturbance Code(s): G30.9 - ALZHEIMER'S DISEASE, UNSPECIFIED; F02.81 - DEMENTIA IN OTH DISEASES CLASSD ELSWHR W BEHAVIORAL DISTURB Status: Chronic Comment: Family requesting neurology evaluation before discharge. (2) GERD (gastroesophageal reflux disease) Code(s): K21.9 - GASTRO-ESOPHAGEAL REFLUX DISEASE WITHOUT ESOPHAGITIS Status: Chronic (3) Hypertension Code(s): I10 - ESSENTIAL (PRIMARY) HYPERTENSION Status: Chronic (4) Protein-calorie malnutrition, moderate Code(s): E44.0 - MODERATE PROTEIN-CALORIE MALNUTRITION Status: Chronic (5) Encephalopathy acute Code(s): G93.40 - ENCEPHALOPATHY, UNSPECIFIED Status: Resolved - Plan * pending placement * accepted [facility], however, family do not want to go there, [facility] but [facility] the [facility] * no changes in plan of care * remains thoroughly confused * no changes in plan of care
[2018-07-25] MEDS ORDERED: Lorazepam 1 MG TAB PO SCH (20:00)
[2018-07-25] MEDS: Latanoprost 0.005% Ophth Soln 2.5 ml Bottle EA EYE SCH (20:04)
[2018-07-25 22:04] VITALS: TEMP 98.4
[2018-07-26 08:07] VITALS: BP 143/83
[2018-07-26] MEDS: Lisinopril 20 MG TAB PO SCH (09:13)
[2018-07-26] MEDS: Furosemide 20 MG TAB PO SCH (09:14)
[2018-07-26] MEDS: Citalopram 10 MG TAB PO SCH (09:14)
[2018-07-26] MEDS: DorzolamidE/Timolol 2%/0.5% Ophth Soln 10 ml Bottle EA EYE SCH (09:15)
[2018-07-26] MEDS: Famotidine 20 MG TAB PO SCH (09:15)
[2018-07-26] MEDS ORDERED: Haloperidol 5 MG TAB PO SCH (13:45)
--- NOTE | 2018-07-27 02:13 | DIS ---
DATE OF ADMISSION: 07/18/2018 DATE OF DISCHARGE: 07/26/2018 PRIMARY CARE PROVIDER: Dr. Ashutosh Vanegas. DISCHARGE DIAGNOSES: 1. Acute metabolic encephalopathy. 2. Urinary tract infection. 3. Dementia, suspected. CONSULTATION DURING THIS HOSPITALIZATION: Neurology, Dr. Crowder. CONDITION OF PATIENT ON THE DAY OF DISCHARGE: Stable. PHYSICAL EXAMINATION: I assessed Ms. Muro on the day of discharge. She denies any chest pain or shortness of breath. Vital signs are stable. She has been ambulating. DISCHARGE MEDICATIONS: 1. Lumigan eye drops one drop to each eye at bedtime. 2. Citalopram 10 mg daily. 3. Dorzolamide/timolol 2/0.5% one drop to each eye two times a day. 4. Lasix 20 mg daily. 5. Lisinopril 40 mg daily. 6. Omeprazole 20 mg daily. 7. Verapamil SR 240 mg daily. 8. Seroquel 25 mg in the morning and 50 mg at bedtime. 9. Atrovent nasal spray as needed. HOSPITAL COURSE: Ms. Muro is a pleasant 82-year-old lady who was admitted to [facility] on 07/18/2018 for altered mental status. Please refer to Dr. Hale's history and physical note dated 07/19/2018 for further details. She was also diagnosed with urinary tract infection and treated with antibiotics. Final urine cultures did not show any growth. She was assessed by Neurology Service for probable dementia. She will likely need further workup as an [facility]. She will also likely need cholinesterase inhibitor such as Exelon and Namenda. After discussion with Case Management, the patient is being discharged to [facility]. Many thanks for allowing me to participate in your patient's care. Please feel free to contact me with any questions or concerns. DISCHARGE DESTINATION: [facility]. Total amount of time spent coordinating this discharge: 33 minutes. Job ID: [id number]
== END 2018-07-26 16:19 | DRG 689 ==
LOC: ERS 18:01 → T4-B 21:01 → ERS 22:33
PROVIDERS: ADMIT Internal Medicine; ATTEND Internal Medicine
DX: N39.0 Urinary tract infection, site not specified (principal); G93.41 Metabolic encephalopathy; I42.9 Cardiomyopathy, unspecified; E44.0 Moderate protein-calorie malnutrition; Z68.1 Body mass index [BMI] 19.9 or less, adult; I10 Essential (primary) hypertension; D64.9 Anemia, unspecified; K21.9 Gastro-esophageal reflux disease without esophagitis; H40.9 Unspecified glaucoma; G30.9 Alzheimer's disease, unspecified; F02.80 Dementia in other diseases classified elsewhere, unspecified severity, without behavioral disturbance, psychotic disturbance, mood disturbance, and anxiety
CPT/HCPCS: 36415; 70551; 80048; 80053; 81003; 81015; 83735; 84484; 85025; 87086; A4216; G8978-GP-CJ; G8979-GP-CJ; G8980-GP-CJ; J0696; J1630; J3486; J7050; S0028